=== PATIENT | female | born 2000 | race Two or more races ===

== ENCOUNTER 2024-09-15 15:00 | Emergency (ER) | payer MEDICAID, SELFPAY ==
[2024-09-15 15:48] VITALS: BP 118/77; PULSE 73; RESP 18; TEMP 37.4; O2SAT 100; BMI 32.5
--- NOTE | 2024-09-15 16:16 | PD.EDDENTL ---
ED Dental RME/HPI General Chief complaint: Dental/Oral/Throat Stated complaint: Sore throat sinc Sunday Time Seen by Provider: 09/15/24 16:16 Source: patient Arrival date/time: 09/15/24 15:00 Mode of arrival: ambulatory Limitations: no limitations RME / HPI RME / HPI Narrative: 24-year-old female presents to the ED with a complaint of sore throat. Patient had been seen 2 weeks ago and was diagnosed with strep throat given antibiotics however the patient tells me that she drank a lot over the weekend and had not kept up with her medication and is requesting to be remedicated. Patient continues to have a sore throat that is irritating her. Onset (ago): week(s) (2 WEEKS) Duration: constant Severity: moderate Severity scale (1-10): 5 Relieving factors: nothing Exacerbating factors: swallowing Associated symptoms: sore throat Related Data Previous Rx's ?Medication ?Instructions ?Recorded penicillin V potassium 500 mg 500 mg PO QID 10 days #40 tabs 09/15/24 tablet Allergies Allergy/AdvReac Type Severity Reaction Status Date / Time NKA Allergy Unknown Uncoded 09/15/24 15:03 No Known Allergies Allergy Uncoded 09/15/24 15:03 Review of Systems Constitutional Constitutional: Reports system reviewed and no additional complaints, except as documented Eyes Eyes: Reports system reviewed and no additional complaints, except as documented, Denies dry eyes, Denies exophthalmos and Reports floaters Cardiovascular Cardiovascular: Denies chest pain with activity and Denies claudication ED Exam Narrative Physical exam: Posterior pharynx is erythematous with exudate. There is no apparent cervical lymphadenopathy present. General Limitations: Present no limitations General appearance: Present alert and in no apparent distress Head Head exam: Present atraumatic and normocephalic Eye Eye exam: Present normal appearance and EOMI ENT ENT exam: Present normal exam, normal oropharynx and mucous membranes moist Neck Neck exam: Present normal inspection, full ROM and trachea midline Chest Chest inspection: Present normal inspection Extremities Exam Extremities exam: Present normal inspection and full ROM Back Exam Back exam: Present normal inspection and full ROM Neurological Exam Neurological exam: Present alert and oriented X3 Psychiatric Psychiatric exam: Present normal affect and normal mood Skin Skin exam: Present warm, dry, intact and normal color Course Course Course Narrative: Patient will be represcribed antibiotics penicillin. Quality Measures none (NA) Orders NA Vital Signs Vital signs: Vital Signs Temperature 99.3 F 09/15/24 15:48 Pulse Rate 73 09/15/24 15:48 Respiratory Rate 18 09/15/24 15:48 Blood Pressure 118/77 09/15/24 15:48 Pulse Oximetry (%) 100 09/15/24 15:48 Oxygen Delivery Method Room Air 09/15/24 15:48 NA Dental / Oral MDM Narrative MDM Narrative:: Patient will be discharged in no apparent distress. She is to follow-up primary care physician in 1 week. She will be represcribed penicillin VK Patient data External records reviewed:: Other (specify) (NONE) Clinical information provided by:: patient Social determinants that could affect healthcare access:: none (NA) Patient has the following chronic illnesses:: NA How is presenting disease/condition affected by chronic disease/condition?: no chronic disease (NO CHRONIC DZ) Evaluation data The following diagnostics were reviewed and interpreted by me:: other (specify) (No labs drawn) Lab and/or radiology exams considered but not ordered:: NA Interpretation Summary: NA Medications / Prescriptions Medications or Prescriptions considered but not ordered:: NA Medication administrations:: NA Consultations Consultation(s) initiated? (list below): No Diagnosis Dental Differential Diagnosis: dental caries, toothache, dental abscess and fracture of tooth Most likely diagnosis given after review of the tests above:: NA Admission Indicated Admission indicated?: not indicated Explain why admission is indicated or not indicated:: NA Admission Request Was there a request for admission?: No Admission Attestation Admission request attestation: NA Disposition Plan Disposition Plan: Discharge Discharge Attestation Discharge Attestation: The patient and all family members were given an opportunity to ask questions and understood the discharge instructions. Discharge instructions specifically effects, indications for sooner follow up or return to the emergency department, and the expected course of current diagnosis. Patient condition: Stable Discharge Plan Plan Patient Disposition: HOME (Self Care) Discharge Disposition comment: Discharge in no apparent distress Patient condition on transfer: Stable Prescriptions/Referrals Prescriptions/Med Rec: New penicillin V potassium 500 mg tablet 500 mg PO QID 10 Days Qty: 40 0RF Problem List Clinical Impression: Strep throat Impression comment: Strep throat Patient/Caregiver Discharge Instructions Discharge Activity: activity as tolerated Print Language: Citizen Of [place] Stand Alone Forms: Aure Award Info., Patient Portal Info Letter PA/[employer] Supervising Physician RICHA/BRIDGER Supervising Physician: SHELLEY
== END 2024-09-15 16:48 | disposition home or self-care (01) ==
LOC: SERX 16:54
PROVIDERS: Emergency Provider Emergency Medicine
DX: J02.0 Streptococcal pharyngitis (principal)
CPT/HCPCS: 99283

== ENCOUNTER 2024-09-23 22:06 | Emergency (ER) | payer MEDICAID, SELFPAY ==
[2024-09-23 22:07] VITALS: BP 123/83; PULSE 100; RESP 18; TEMP 37; O2SAT 99; BMI 30.7
[2024-09-23] MEDS: AMOXICILLIN/POT CLAV 875 TABLET 1 TAB PO (23:47)
--- NOTE | 2024-09-23 23:50 | EDNOTE_ITS ---
<Statement entered by Patricia Hsu MD - 09/24/24 04:48> As co-signing physician, I was present and available for consult prn. I concur with the plan and care as documented by the midlevel provider. Upper Respiratory Inf. RME/HPI General Chief Complaint: Dental/Oral/Throat Stated Complaint: I HAVE STREP THROAT Time Seen by Provider: 09/23/24 23:40 Arrival date/time: 09/23/24 22:06 24F with no significant PMh presents to ED with 2 weeks of sore throat. Patient tested positive for strep at clinic. She improved while on amoxicillin, but it came back. Patient was then on pencillin w/o relief. Limitations: no limitations Related Data Previous Rx's ?Medication ?Instructions ?Recorded penicillin V potassium 500 mg 500 mg PO QID 10 days #4 0 tabs 09/15/24 tablet amoxicillin 875 mg-potassium 1 tab PO BID 10 days #20 tabs 09/23/24 clavulanate 125 mg tablet Allergies Allergy/AdvReac Type Severity Reaction Status Date / Time NKA Allergy Unknown Uncoded 09/23/24 22:07 No Known Allergies Allergy Uncoded 09/23/24 22:07 Review of Systems Review of Systems Systems Reviewed: All systems reviewed, normal except as documented Constitutional Constitutional: Reports system reviewed and no additional complaints, except as documented, Denies fever(s) and Denies headache(s) ENT Ears, Nose, Mouth, and Throat: Reports as per HPI, Denies disequilibrium, Denies headache(s) and Reports sore throat Cardiovascular Cardiovascular: Reports system reviewed and no additional complaints, except as documented, Denies chest pain and Denies dyspnea Respiratory Respiratory: Reports system reviewed and no additional complaints, except as documented, Denies cough and Denies dyspnea Gastrointestinal Gastrointestinal: Reports system reviewed and no additional complaints, except as documented, Denies abdominal pain, Denies nausea and Denies vomiting Neurologic Neurologic: Reports system reviewed and no additional complaints, except as documented, Denies confusion, Denies disequilibrium and Denies headache(s) Psychiatric Psychiatric: Denies confusion Past Medical History Past Medical History CARDIAC: Negative Congestive Heart Failure RESPIRATORY: Negative Chronic Obstructive Pulmonary Disease (COPD) GENITOURINARY: Negative Renal Disease ENDOCRINE: Negative Diabetes Mellitus Type 1 or Diabetes Mellitus Type 2 Social History SMOKING STATUS: Never smoker ED Exam General Limitations: Present no limitations General appearance: Present alert and in no apparent distress Head Head exam: Present atraumatic Eye Eye exam: Present normal appearance, PERRL and EOMI ENT ENT exam: Present mucous membranes moist Expanded ENT Exam Throat exam: Present tonsillar erythema and tonsillomegaly; Absent tonsillar exudate, R peritonsillar mass, L peritonsillar mass or muffled voice Neck Neck exam: Present normal inspection, full ROM and trachea midline Chest Chest inspection: Present normal inspection and symmetric chest wall rise Respiratory Respiratory exam: Present normal lung sounds bilaterally Cardiovascular Cardiovascular exam: Present regular rate, normal rhythm and normal heart sounds Abdominal Exam Abdominal exam: Present soft and normal bowel sounds Extremities Exam Extremities exam: Present normal inspection and full ROM Back Exam Back exam: Present normal inspection and full ROM Neurological Exam Neurological exam: Present alert, oriented X3 and CN II-XII intact Psychiatric Psychiatric exam: Present normal affect and normal mood Skin Skin exam: Present warm, dry, intact and normal color Course Quality Measures none Orders Category Date Time Status Amoxicillin/Pot Clav 875 [Augmentin 875] Med 09/23/24 23:41 Discontinued 1 tab PO X1 ONE Vital Signs Vital signs: Vital Signs Temperature 98.6 F 09/23/24 22:07 Pulse Rate 100 09/23/24 22:07 Respiratory Rate 18 09/23/24 22:07 Blood Pressure 123/83 09/23/24 22:07 Pulse Oximetry (%) 99 09/23/24 22:07 Oxygen Delivery Method Room Air 09/23/24 22:07 O2 at 99% on RA and WNLs Upper Respiratory Infection MDM Narrative MDM Narrative:: 24F with no significant PMh presents to ED with 2 weeks of sore throat. Patient tested positive for strep at clinic. She improved while on amoxicillin, but it came back. Patient was then on pencillin w/o relief. Physical exam reveals red and swollen oropharynx. Patient is afebrile, calm, and alert. Will trial Augmentin. Patient is not concerned about STDs. Patient data External records reviewed:: [facility] previous records Clinical information provided by:: patient Social determinants that could affect healthcare access:: none Patient has the following chronic illnesses:: none How is presenting disease/condition affected by chronic disease/condition?: no chronic disease Evaluation data The following diagnostics were reviewed and interpreted by me:: other (specify) (none) Lab and/or radiology exams considered but not ordered:: not ordered Interpretation Summary: n/a Medications / Prescriptions Medications or Prescriptions considered but not ordered:: ordered Medication administrations:: Medication Administration History Discontinued Medications Amoxicillin/Clavulanate Potassium (Amoxicillin/Pot Clav 875 Tablet) 1 tab PO X1 ONE Stop: 09/23/24 23:42 Last Admin: 09/23/24 23:47 Dose: 1 tab Documented By: OA above Consultations Consultation(s) initiated? (list below): No Diagnosis Upper Respiratory Differential Diagnosis: upper respiratory infection, croup, otitis media, sinusitis, viral infection, bronchitis, influenza and pharyngitis Most likely diagnosis given after review of the tests above:: pharyngitis Admission Indicated Admission indicated?: not indicated Admission Request Was there a request for admission?: No Disposition Plan Disposition Plan: Discharge Discharge Attestation Discharge Attestation: The patient and all family members were given an opportunity to ask questions and understood the discharge instructions. Discharge instructions specifically effects, indications for sooner follow up or return to the emergency department, and the expected course of current diagnosis. Patient condition: Stable Discharge Plan Plan Patient Disposition: HOME (Self Care) Discharge Disposition comment: Stable Prescriptions/Referrals Prescriptions/Med Rec: New amoxicillin-pot clavulanate 875-125 mg tablet 1 tab PO BID 10 Days Qty: 20 0RF No Action penicillin V potassium 500 mg tablet 500 mg PO QID 10 Days Qty: 40 0RF Problem List Clinical Impression: Pharyngitis Patient/Caregiver Discharge Instructions Education Materials: When You Have a Sore Throat Additional Instructions: Please follow-up with PCP within 24-48 hours and return immediately if symptoms worsen. Stop penicillin and take new ABX. Print Language: Indonesian Stand Alone Forms: Patient Portal Info Letter PA/MANAGER [employer]ARM Supervising Physician RICHA/MANAGER [employer]ARM Supervising Physician: Dr. Hsu
== END 2024-09-23 23:54 | disposition home or self-care (01) ==
LOC: SERX 23:49
PROVIDERS: Emergency Provider Emergency Medicine; PCP Family Medicine
DX: J02.9 Acute pharyngitis, unspecified (principal)
CPT/HCPCS: 99282; A9270

== ENCOUNTER 2024-12-30 20:09 | Emergency (ER) | payer MEDICAID, SELFPAY ==
[2024-12-30 20:11] VITALS: BMI 29.0
[2024-12-30 20:18] VITALS: BP 131/86; PULSE 118; RESP 18; TEMP 37.6; O2SAT 97
--- NOTE | 2024-12-30 20:28 | PD.EDURI ---
Upper Respiratory Inf. RME/HPI General Chief Complaint: Dental/Oral/Throat Stated Complaint: SORE THROAT Time Seen by Provider: 12/30/24 20:26 Arrival date/time: 12/30/24 20:09 24F with no significant PMH presents to ED with 2 days of sore throat and mild cough. Limitations: no limitations Related Data Previous Rx's ?Medication ?Instructions ?Recorded amoxicillin 500 mg tablet 500 mg PO BID 10 days #20 tabs 12/30/24 Allergies Allergy/AdvReac Type Severity Reaction Status Date / Time No Known Allergies Allergy Verified 12/30/24 20:10 Review of Systems Review of Systems Systems Reviewed: All systems reviewed, normal except as documented ENT Ears, Nose, Mouth, and Throat: Reports as per HPI and Reports sore throat Respiratory Respiratory: Reports as per HPI and Reports cough Past Medical History Past Medical History CARDIAC: Negative Congestive Heart Failure RESPIRATORY: Negative Chronic Obstructive Pulmonary Disease (COPD) GENITOURINARY: Negative Renal Disease ENDOCRINE: Negative Diabetes Mellitus Type 1 or Diabetes Mellitus Type 2 Social History SMOKING STATUS: Never smoker ED Exam General Limitations: Present no limitations General appearance: Present alert and in no apparent distress Head Head exam: Present atraumatic ENT ENT exam: Present mucous membranes moist Expanded ENT Exam Throat exam: Present tonsillar erythema, tonsillomegaly and tonsillar exudate; Absent R peritonsillar mass, L peritonsillar mass or muffled voice Neck Neck exam: Present normal inspection, full ROM and trachea midline Chest Chest inspection: Present normal inspection and symmetric chest wall rise Neurological Exam Neurological exam: Present alert and oriented X3 Psychiatric Psychiatric exam: Present normal affect and normal mood Skin Skin exam: Present warm, dry, intact and normal color Course Quality Measures none Orders Category Date Time Status Strep A Rapid Stat Lab 12/30/24 20:31 Completed Amoxicillin Cap [Amoxil Cap] Med 12/30/24 21:00 Once 500 mg PO X1 ONE Vital Signs Vital signs: Vital Signs Temperature 99.6 F 12/30/24 20:18 Pulse Rate 118 H 12/30/24 20:18 Respiratory Rate 18 12/30/24 20:18 Blood Pressure 131/86 H 12/30/24 20:18 Pulse Oximetry (%) 97 12/30/24 20:18 Oxygen Delivery Method Room Air 12/30/24 20:18 O2 at 97% on RA and WNLs Upper Respiratory Infection MDM Narrative MDM Narrative:: 24F with no significant PMH presents to ED with 2 days of sore throat and mild cough. Physical exam reveals red and swollen oropharynx with exudates. Normal WOB. Patient is afebrile, calm, and alert. Strep+. Meds and reimbursement counselor given. Patient data External records reviewed:: [facility] previous records Clinical information provided by:: patient Social determinants that could affect healthcare access:: none Patient has the following chronic illnesses:: none How is presenting disease/condition affected by chronic disease/condition?: no chronic disease Evaluation data The following diagnostics were reviewed and interpreted by me:: lab results Lab and/or radiology exams considered but not ordered:: ordered Interpretation Summary: above Medications / Prescriptions Medications or Prescriptions considered but not ordered:: not ordered Medication administrations:: Medication Administration History Amoxicillin (Amoxicillin 250 Mg Capsule) 500 mg PO X1 ONE Stop: 12/30/24 21:01 n/a Consultations Consultation(s) initiated? (list below): No Diagnosis Upper Respiratory Differential Diagnosis: upper respiratory infection, croup, otitis media, sinusitis, viral infection, bronchitis and pharyngitis Most likely diagnosis given after review of the tests above:: strep Admission Indicated Admission indicated?: not indicated Admission Request Was there a request for admission?: No Disposition Plan Disposition Plan: Discharge Discharge Attestation Discharge Attestation: The patient and all family members were given an opportunity to ask questions and understood the discharge instructions. Discharge instructions specifically effects, indications for sooner follow up or return to the emergency department, and the expected course of current diagnosis. Patient condition: Stable Discharge Plan Plan Patient Disposition: HOME (Self Care) Discharge Disposition comment: Stable Prescriptions/Referrals Prescriptions/Med Rec: New amoxicillin 500 mg tablet 500 mg PO BID 10 Days Qty: 20 0RF Problem List Clinical Impression: Acute streptococcal pharyngitis Patient/Caregiver Discharge Instructions Education Materials: ED Pharyngitis, Strep (Confirmed) Additional Instructions: Please follow-up with PCP within 24-48 hours and return immediately if symptoms worsen. Ibuprofen/Tylenol can be used simultaneously for greater fever/pain control. Print Language: Romanian Stand Alone Forms: Patient Portal Info Letter RICHA/BRIDGER Supervising Physician ASPEN Supervising Physician: Dr. Shaw
[2024-12-30 20:59] LABS: Strep A Rapid Positive (Negative)
[2024-12-30] MEDS: AMOXICILLIN 250 MG CAPSULE 500 MG PO (21:08)
== END 2024-12-30 21:17 | disposition home or self-care (01) ==
LOC: SERX 21:13
PROVIDERS: Physician Assistant; Emergency Provider Emergency Medicine
DX: J02.0 Streptococcal pharyngitis (principal)
CPT/HCPCS: 87651; 99282; A9270

== ENCOUNTER 2025-01-25 18:25 | Emergency (ER) | payer MEDICAID, SELFPAY ==
[2025-01-25 19:12] VITALS: BP 119/77; PULSE 92; RESP 18; TEMP 37; O2SAT 98
--- NOTE | 2025-01-25 19:18 | XR_ITS ---
Examination: CT soft tissue neck, with intravenous contrast. 2-D coronal reconstructions. 2-D sagittal reconstructions. Date and time of exam : January 25, 2025, 11:00 p.m INDICATIONS: Sore throat today. CTDI: vol (mGy): 13.5 DLP: (mGycm): 329 Technique: 1.25 mm axial sections of the neck of the obtained. Coronal and sagittal reconstructions have been obtained. Intravenous contrast administered 50 cc Isovue-370. Low dose protocols were performed. One or more of the following dose reduction techniques were used; automated exposure control, adjustment of the mA and/or KV according to patient size, use of iterative reconstruction technique. Findings: Symmetrical nasopharynx Mild soft tissue tonsillar hypertrophy No tonsillar abscess Symmetrical submandibular glands Small nonspecific carotid triangle lymph nodes The larynx appears normal No thyroid masses Normal epiglottis Minimal prevertebral soft tissue prominence C4-C7 IMPRESSION: No tonsillar abscess Minimal prevertebral soft tissue prominence, clinical correlation advised If there are clinical findings of prevertebral soft tissue abscess, recommend MRI cervical spine pre and post contrast follow-up
[2025-01-25 19:42] LABS: Basophils # (Auto) 0.1 Thou/mm3 (0.0-0.2); Basophils % (Auto) 1 % (0-2.5); Eosinophils # (Auto) 0.2 Thou/mm3 (0.0-0.5); Eosinophils % (Auto) 3 % (0-10); Hematocrit 37.3 % (36.0-46.0); Hemoglobin 12.2 g/dL (12.0-16.0); Immature Granulocytes Auto 0.03 Thou/mm3 (0.00-0.00); Lymphocytes # (Auto) 1.2 Thou/mm3 (1.0-4.8); Lymphocytes % (Auto) 14 % (10-50); Mean Corpuscular HGB Conc 32.7 g/dl (31.0-37.0); Mean Corpuscular Hemoglobin 28.6 pg (25.0-35.0); Mean Corpuscular Volume 88 fL (80-100); Monocytes # (Auto) 1.1 Thou/mm3 (0.0-0.8); Monocytes % (Auto) 13 % (0-12); Neutrophils # (Auto) 6.1 Thou/mm3 (1.8-7.7); Neutrophils % (Auto) 70 % (37-80); Nucleated Red Blood Cell # 0.00 Thou/mm3 (0.00-0.00); Nucleated Red Blood Cell % 0 /100 WBC (0); Platelet Count 255 Thou/mm3 (140-440); RDW Standard Deviation 40.9 fL (36.4-46.3); Red Blood Count 4.26 Miln/mm3 (4.00-5.20); White Blood Count 8.7 Thou/mm3 (3.6-11.0)
[2025-01-25 20:24] LABS: HCG,Qualitative Serum Negative
[2025-01-25 20:27] LABS: Alanine Aminotransferase 16 U/L (10-49); Albumin, Serum 4.8 gm/dL (3.5-5.0); Albumin/Globulin Ratio 1.7 (1.2-2.2); Alkaline Phosphatase 104 U/L (46-116); Anion Gap 9 (7-16); Aspartate Amino Transferase 20 U/L (0-34); BUN/Creatinine Ratio 9 Ratio (12-20); Bilirubin,Total 0.2 mg/dL (0.3-1.2); Blood Urea Nitrogen 7 mg/dL (9-23); Calcium 9.7 mg/dL (8.3-10.6); Calcium (Corrected) 9.7 mg/dL (8.5-10.1); Carbon Dioxide 25.5 mMol/L (20.0-31.0); Chloride 106 mMol/L (98-107); Creatinine (Component) 0.8 mg/dL (0.6-1.3); Globulin 2.8 gm/dL (2.3-3.5); Glucose 92 mg/dL (74-106); Osmolality,Calculated 277 (275-295); Potassium 3.8 mMol/L (3.4-5.1); Sodium 140 mMol/L (136-145); Total Protein 7.6 gm/dL (5.7-8.2); eGFR > 60 See Note
[2025-01-25 22:02] LABS: Strep A Rapid Negative (Negative)
--- NOTE | 2025-01-25 23:38 | EDNOTE_ITS ---
ED Dental RME/HPI General Chief complaint: General Adult/Misc Complain Stated complaint: WANTS ATB FOR STREP THROAT Time Seen by Provider: 01/25/25 18:35 Arrival date/time: 01/25/25 18:25 This is a case of 24-year-old female with history of previous strep throat infection last time was December and was given Augmentin patient is fine until today started to have sore throat no other symptoms no cough no nasal congestion no postnasal drip no fever or chills no drooling of saliva no hoarseness of voice persistence of the symptoms this patient decided to sought consult here in the emergency room Limitations: no limitations Related Data Previous Rx's ?Medication ?Instructions ?Recorded clarithromycin 500 mg tablet 500 mg PO BID 10 days #20 tabs 01/25/25 lidocaine HCl 2 % mucosal solution 10 ml PO Q4HR PRN s ore throat #100 01/25/25 (Lidocaine Viscous) mL prednisone 20 mg tablet See Taper PO QDAY 5 days #5 tabs 01/25/25 Allergies Allergy/AdvReac Type Severity Reaction Status Date / Time No Known Allergies Allergy Verified 01/25/25 18:27 Review of Systems Review of Systems Systems Reviewed: All systems reviewed, normal except as documented Constitutional Constitutional: Reports system reviewed and no additional complaints, except as documented and Reports as per HPI ENT Ears, Nose, Mouth, and Throat: Reports system reviewed and no additional complaints, except as documented and Reports as per HPI Cardiovascular Cardiovascular: Reports system reviewed and no additional complaints, except as documented and Reports as per HPI Gastrointestinal Gastrointestinal: Reports system reviewed and no additional complaints, except as documented Musculoskeletal Musculoskeletal: Reports system reviewed and no additional complaints, except as documented and Reports as per HPI Neurologic Neurologic: Reports system reviewed and no additional complaints, except as documented and Reports as per HPI Past Medical History Past Medical History CARDIAC: Negative Cardiac Disorders or Congestive Heart Failure RESPIRATORY: Negative Chronic Obstructive Pulmonary Disease (COPD) or Asthma GENITOURINARY: Negative Renal Disease ENDOCRINE: Negative Diabetes Mellitus Type 1 or Diabetes Mellitus Type 2 HEMATOLOGIC: Negative Sickle Cell Disease Social History SMOKING STATUS: Never smoker ED Exam General Limitations: Present no limitations General appearance: Present alert, in no apparent distress and other (Patient is awake alert oriented not in distress nontoxic looking well-hydrated well- nourished) Head Head exam: Present atraumatic, normocephalic and normal inspection Eye Eye exam: Present normal appearance, PERRL and EOMI ENT ENT exam: Present normal exam, normal oropharynx, mucous membranes moist and other (Nose and ear exam is normal bilateral tonsils were swollen red with exudate uvula midline Centor criteria1/4 no drooling of saliva no peritonsillar abscess no muffled voice no hot potato voice) Neck Neck exam: Present normal inspection, full ROM and trachea midline; Absent tenderness, meningismus, lymphadenopathy or thyromegaly Chest Chest inspection: Present normal inspection and symmetric chest wall rise; Absent tenderness Respiratory Respiratory exam: Present normal lung sounds bilaterally; Absent respiratory distress, wheezes, stridor, accessory muscle use or prolonged expiratory phase Cardiovascular Cardiovascular exam: Present regular rate, normal rhythm and normal heart sounds; Absent bradycardia, tachycardia, irregular rhythm, systolic murmur or di astolic murmur Abdominal Exam Abdominal exam: Present soft and normal bowel sounds Extremities Exam Extremities exam: Present normal inspection and full ROM Back Exam Back exam: Present normal inspection and full ROM Neurological Exam Neurological exam: Present alert, oriented X3, CN II-XII intact, normal gait and reflexes normal; Absent motor sensory deficit Psychiatric Psychiatric exam: Present normal affect and normal mood Skin Skin exam: Present warm, dry, intact, normal color and other (Excellent skin turgor) Course Quality Measures none Orders Category Date Time Status CT Screening NOW Care 01/25/25 19:18 Active Insert IV NOW Care 01/25/25 21:[address] soft tissue neck w con Stat Exams 01/25/25 19:18 Completed CBC Stat Lab 01/25/25 19:32 Completed CMP [Comprehensive Metabolic Panel] Stat Lab 01/25/25 19:32 Completed HCG,Qualitative Serum Stat Lab 01/25/25 19:32 Completed Woods Screen Stat Lab 01/25/25 19:32 Received Strep A Rapid Stat Lab 01/25/25 21:21 Completed Dexamethasone Inj [Decadron Inj] Med 01/25/25 23:34 Discontinued 10 mg IM X1 ONE Lidocaine 2% Viscous [Xylocaine 2% Viscous] Med 01/25/25 23:34 Discontinued 15 ml PO X1 ONE cefTRIAXone [Rocephin] 1,000 mg Med 01/25/25 23:34 Discontinued Lidocaine 1% Pf 5 ml [Xylocaine 1% Pf 5 ml] 2.1 ml IM X1 Vital Signs Vital signs: Vital Signs Temperature 98.6 F 01/25/25 19:12 Pulse Rate 92 01/25/25 19:12 Respiratory Rate 18 01/25/25 19:12 Blood Pressure 119/77 01/25/25 19:12 Pulse Oximetry (%) 98 01/25/25 19:12 Oxygen Delivery Method Room Air 01/25/25 19:12 Oxygen saturation is 98% in room air normal Dental / Oral MDM Narrative MDM Narrative:: This is a case of 24-year-old female with history of previous strep throat infection last time was December and was given Augmentin patient is fine until today started to have sore throat no other symptoms no cough no nasal congestion no postnasal drip no fever or chills no drooling of saliva no hoarseness of voice persistence of the symptoms this patient decided to sought consult here in the emergency room physical examination patient is awake alert oriented not in d istress nontoxic looking well-hydrated well-nourished excellent skin turgor nose and ears were normal bilateral tonsils were swollen red with exudate uvula is midline no peritonsillar abscess no muffled voice no hot potato voice no drooling of a saliva Centor criteria 1/4 lungs sound is clear the rest of the physical examination and neurological exam is normal based on my physical examination and history due to exudative tonsillitis I ordered CT scan with contrast neck soft tissue blood test showed no leukocytosis no anemia kidney and liver function is normal no electrolyte imbalance patient is not patient CT scan showed no peritonsillar abscess patient then was treated for exudative tonsillitis ceftriaxone IM was given patient is negative for strep throat pending mono the result will be tomorrow morning patient was discharged clarithromycin p.o. to be taken twice a day for 10 days lidocaine viscous and prednisone to decrease inflammation patient was advised to follow-up with PCP to be referred to ENT specialist for recurrent throat infection and for any worsening symptoms or any emergent concern return precaution in the ER is advised Patient was discharged with comfortable condition walking with stable gait. Patient verbalized no further complains explained diagnosis and answered patient question. Patient is comfortable with the proposed management plan including the need to follow up with his/her primary care physician and any specialist if applicable Discussed patient for any urgent condition or worsening sx, He/She needed to go to emergency room immediately or call 911. Patient acknowledge the responsibility to follow up as instructed and to monitor her/his symptoms. For any persistence of the symptoms for more than 3-5 days return precaution advised. Discussed the result of the test and was given printed discharge instruction Patient data External records reviewed:: [facility] previous records Clinical information provided by:: patient Social determinants that could affect healthcare access:: none Patient has the following chronic illnesses:: None How is presenting disease/condition affected by chronic disease/condition?: no chronic disease Evaluation data The following diagnostics were reviewed and interpreted by me:: lab results and radiology exam(s) Lab and/or radiology exams considered but not ordered:: Reviewed Interpretation Summary: Reviewed Medications / Prescriptions Medications or Prescriptions considered but not ordered:: Given Medication administrations:: Medication Administration History Discontinued Medications Ceftriaxone Sodium 1,000 mg/ (Lidocaine HCl 2.1 ml) 0 mg IM X1 ONE Stop: 01/25/25 23:35 Dexamethasone Sodium Phosphate (Dexamethasone Sod Phos Inj 10 Mg/Ml Vial) 10 mg IM X1 ONE Stop: 01/25/25 23:35 Lidocaine HCl (Lidocaine Viscous 2% 15 Ml Udc) 15 ml PO X1 ONE Stop: 01/25/25 23:35 Given Consultations Consultation(s) initiated? (list below): No Diagnosis Dental Differential Diagnosis: other (Strep throat exudative tonsillitis) Most likely diagnosis given after review of the tests above:: Exudative tonsillitis Admission Indicated Admission indicated?: not indicated Explain why admission is indicated or not indicated:: Not indicated Admission Request Was there a request for admission?: No Admission Attestation Admission request attestation: Not indicated Disposition Plan Disposition Plan: Discharge Discharge Attestation Discharge Attestation: The patient and all family members were given an opportunity to ask questions and understood the discharge instructions. Discharge instructions specifically effects, indications for sooner follow up or return to the emergency department, and the expected course of current diagnosis. Patient condition: Stable Discharge Plan Plan Patient Disposition: HOME (Self Care) Patient condition on transfer: Stable Prescriptions/Referrals Prescriptions/Med Rec: New clarithromycin 500 mg tablet 500 mg PO BID 10 Days Qty: 20 0RF prednisone 20 mg tablet See Taper PO QDAY 5 Days Qty: 5 0RF Taper: Prednisone Taper 20 mg DAILY for 2 Days and 0 Hour 10 mg DAILY for 2 Days and 0 Hour 5 mg DAILY for 7 Days and 0 Hour lidocaine HCl [Lidocaine Viscous] 2 % solution 10 ml PO Q4HR PRN (Reason: sore throat) Qty: 100 0RF Referrals: No Primary/Family,Physician [Primary Care Provider] - In 1 week Problem List Clinical Impression: Exudative tonsillitis Patient/Caregiver Discharge Instructions Education Materials: Tonsillitis in Adults Additional Instructions: Follow-up with your primary care physician in 2 days for reevaluation worsening symptoms or any emergent concern call 911 or go to the nearest emergency room take your medication as directed finish the course of antibiotic warm saline gargle is advised increase water intake keep hydrated it is very important to see a ENT specialist for recurrent throat infection Print Language: Bel[place]ian Stand Alone Forms: Aure Award Info., Patient Portal Info Letter PA/RDA Supervising Physician PA/RDA Supervising Physician: Dr. Wade
[2025-01-25] MEDS: DEXAMETHASONE SOD PHOS INJ 10 MG/ML VIAL IM (23:43)
[2025-01-25] MEDS: LIDOCAINE VISCOUS 2% 15 ML UDC PO (23:44)
[2025-01-26 08:59] LABS: Mono Screen Negative (Negative)
== END 2025-01-26 00:02 | disposition home or self-care (01) ==
PROVIDERS: Nurse Practitioner Family; Emergency Provider Emergency Medicine
DX: J03.90 Acute tonsillitis, unspecified (principal)
CPT/HCPCS: 36415; 70491; 80053; 84703; 85025; 86308; 87651; 96372; 99283; A4649; J0696; J1100; J3490; Q9967